=== PATIENT | male | born 1980 | race Caucasian/White ===

== ENCOUNTER 2021-11-15 10:50 | Emergency (ER) | payer OTHER ==
[2021-11-15 11:08] VITALS: BP 131/81; PULSE 80; TEMP 98; BMI 34.0
[2021-11-15 13:02] LABS: BASO % 1.2 % (0-2.0); EOS % 10.5 % (0-4.5); HEMATOCRIT 44.8 % (35.4-49); HEMOGLOBIN 15.8 GM/dL (11.7-16.9); MCH 29.3 pg (25.7-33.7); MCHC 35.2 g/dl (32.0-35.9); MEAN CELL VOLUME 83.3 fl (80-96); MEAN PLT VOLUME 8.4 fl (7.5-11.1); MONO % 9.7 % (3.8-10.2); NEUT % 50.6 % (42.8-82.8); PLATELET COUNT 193 10^3/uL (134-434); RBC 5.39 M/mm3 (4.00-5.60); RDW 13.8 % (11.9-15.9); WHITE BLOOD COUNT 6.8 K/mm3 (4.0-10.0)
[2021-11-15 14:04] LABS: ERYTHROCYTE SEDIMENTATION RATE 14 mm/hr (0-10)
[2021-11-15 14:36] LABS: ALBUMIN 3.2 g/dl (3.4-5.0); BILIRUBIN,TOTAL 0.6 mg/dL (0.2-1); BLOOD UREA NITROGEN 14.3 mg/dL (7-18); TOT PROT 6.8 g/dl (6.4-8.2)
[2021-11-15 14:37] LABS: CALCIUM 8.8 mg/dL (8.5-10.1)
== END 2021-11-15 16:27 | disposition home or self-care (01) ==
LOC: JER 10:50
DX: B37.2 Candidiasis of skin and nail (principal); L03.317 Cellulitis of buttock
CPT/HCPCS: 36415; 80053; 82272; 85025; 85651; 86140; 99283-25